=== PATIENT | female | born 1960 | race Caucasian/White ===

== ENCOUNTER 2016-12-10 09:06 | Outpatient (CLI) ==
[2015-03-19 12:04] VITALS: BMI 40.7
[2016-12-10 09:21] LABS: BASOPHILS % (AUTO) 0.5 % (0.0-3.0); EOSINOPHILS # (AUTO) 0.5 K/ul (0.0-0.7); EOSINOPHILS % (AUTO) 5.8 % (0.0-7.0); HEMATOCRIT 48.1 % (37.0-47.0); HEMOGLOBIN 15.6 g/dl (12.0-16.0); IMMATURE GRANULOCYTE % (AUTO) 0.2 % (0.0-5.0); LYMPHOCYTES # (AUTO) 2.3 K/uL (0.60-3.4); LYMPHOCYTES % (AUTO) 25.8 (10.0-50.0); MEAN CORPUSCULAR HEMOGLOBIN 29.9 pg (27.0-31.0); MEAN CORPUSCULAR HGB CONC 32.4 (31.8-35.4); MEAN CORPUSCULAR VOLUME 92.3 fl (81.0-99.0); MONOCYTES # (AUTO) 0.9 K/uL (0.4-2.0); MONOCYTES % (AUTO) 10.6 (0-10); NEUTROPHILS # (AUTO) 5.1 K/ul (2.0-6.9); NEUTROPHILS % (AUTO) 57.1; PLATELET COUNT 285 10^3/uL (140-440); RED BLOOD COUNT 5.21 10^6/ul (4.20-5.40); WHITE BLOOD COUNT 8.85 K/ul (4.6-10.2)
[2016-12-10 10:06] LABS: ALBUMIN 3.8 g/dL (3.4-5.0); ALBUMIN/GLOBULIN RATIO 1.12; ANION GAP 15.4; BILIRUBIN,TOTAL 0.51 mg/dL (0.00-1.20); BUN/CREATININE RATIO 19.58; CALCIUM 10.1 mg/dL (8.2-10.2); CREATININE 0.97 mg/dL (0.60-1.30); POTASSIUM 4.4 mmol/L (3.5-5.10); TOTAL PROTEIN 7.2 g/dL (6.4-8.2)
== END 2016-12-10 09:07 | disposition home or self-care (01) ==
LOC: LAB 09:06
PROVIDERS: ATTEND Emergency Medicine
DX: E11.9 Type 2 diabetes mellitus without complications (principal); I10 Essential (primary) hypertension; E78.5 Hyperlipidemia, unspecified; E66.9 Obesity, unspecified
CPT/HCPCS: 36415; 80053; 80061; 83036; 84443; 85025

== ENCOUNTER 2016-12-27 11:00 | Outpatient (RCR) ==
[2015-03-19 12:04] VITALS: BMI 40.7
--- NOTE | 2016-12-23 16:13 | RS.OPPTEV2 ---
Date of Note: 12/23/16 Visit #: 1 Date of Evaluation: 12/23/16 Payer Source: Medicaid Date of Onset/Injury/Change in Status: 11/28/16 Surgery Performed?: No Treatment Diagnosis: right heel/foot pain, plantar fasciitis History of Condition/Mechanism of Injury:: Patient reports right foot pain for approximately three weeks. States she has not had an injury to the foot. She wonders if it could be from limping on the left LE due to continued problems with the left knee. At this time she has had no injection and is not using any type of shoe insert. Prior Level of Function.....Patient was independent with: ADL's, Self Care, Caregiving, Ambulation/Mobility, Community Integration/Access Functional Limitations: ADL's (that require standing), Standing, Ambulation, Community Access/Integration Current Subjective/complaints:: Patient reports right foot pain. States most of her pain is at the bottom of the heel, but states she also has pain throughout the arch, plantar aspect of the foot and sometime the top of the foot. States she was given cream to put on the foot that is supposed to help with inflammation. States she tried ice on the right foot, but she could not tolerate the cold. States she just tries not to walk on it too much. She wears diabetic shoes. She does not have extra insert for the heel. States the doctor told her she did not need anthing extra in the shoe. She reports tingling in the feet from neuropathy. Reports her first steps in the morning are the most painful. After walking a little, her pain decreases, then turns into throbbing. States her feet swell. She has noticed the right foot with more swelling. She was instructed to perform the towel stretch, which she has been performing at home. States she still has pain with the left knee and limps at times. She feels that her limping on the left LE has caused the pain in the right foot. Patient states she cannot tolerate walking long distances, such as for shopping. Treatment Side (optional): Right Medical History Medical History: Hypertension, COPD, Diabetes Surgical History Comments:: Left TKA 01/16/15. Manipulation of left knee . Revision of left TKA on 11/04/15. Manipulation of the left knee 2015. Smoking Status: Former smoker Diagnostic Testing/Imaging:: Patient states she had an Xray that revealed a large bone spur on the heel of the right foot. Hx Home Medications: Tylenol, anti-inflammatory topical cream Patient's Goals: Her goal is to get relief of right foot pain and avoid surgery. Pain Assessment - Pain Description Pain Location: right foot: heel, plantar aspect, arch Pain Description: Throbbing Current Pain Intensity: 8/10 Worst Pain Intensity: 10/10 Functional Outcome Measure LE Functional Scale: 39 (39/80=51.25% impairment) - G Codes & Severity Modifier G Codes & Modifier: NA Source of G Code score: NA Observation - Observation Inspection: Right foot presents with no discoloration or bruising. Right foot at heel, plantar aspect and mid foot demonstrates no observable bruising compared to the left. Lateral malleoli appears to have puffiness at the inferior aspect. Girth Measurement Lower: Metheads: right 23 cm, left 23 cm. arch: right 22.5 cm, left 23 cm. malleoli: right 26 cm, left 26 cm Gait - Gait Pattern Gait Comments: Patient demonstrates decreased heelstrike on the right LE. Ambulates without an assistive device, independently. First few steps she demonstrates decreased stance on right LE, then appears to have an abbreviated stance on the left LE. - Left Knee ROM Comments: Left knee AROM -5 degrees extension to 90 degrees flexion. - Right Knee ROM Comments: Right knee AROM WFL's. - Left Knee Strength Left Knee Extension: 4+ Good + Left Knee Flexion: 4+ Good + - Right Knee Strength Right Knee Extension: 5 Normal Right Knee Flexion: 4+ Good + - Left Ankle ROM Left DF with Knee extension: neutral Comments: All else left ankle WFL's. - Right Ankle ROM Right DF with Knee extension: -5 degrees Comments: All else right ankle WFL's. - Left Ankle Strength Left Dorsiflexion: 5 Normal Left Plantar flexion: 5 Normal Left Eversion: 4+ Good + Left Inversion: 4+ Good + - Right Ankle Strength Right Dorsiflexion: 5 Normal Right Plantarflexion: 4+ Good + Right Eversion: 4 Good Right Inversion: 4+ Good + Palpation Comments:: Patient reports most tender at das aspect of the heel. States she is tender throughout the heel, plantar aspect of foot, arch, and dorsum of midfoot. Sensation - Sensation Comments: Reports tingling in the feet from neuropathy. She does not commit to where specifically the tingling is in the feet. Balance - Sitting Balance Static Sitting Balance: Good Dynamic Sitting Balance: Good - Standing Balance Static Standing Balance: Normal Dynamic Standing Balance: Normal - Treatment Modality: Ultrasound Parameters/Method Applied: 1.5 w/cm2 continuous X 9 mins to palmar aspect of right heel, throughout the plantar fascia and longitudinal arch. Patient Position: Sitting Interventions - Exercise/Activities/Manual Therapy Exercises/Activities: Patient instructed to continue towel stretch and also added heel stretch while standing on a step, and plantar fascia stretch. Advised patient to freeze a water bottle and try rolling her foot on it after prolonged standing and walking. Manual Therapy: NA HOME EXERCISE PROGRAM: Heelcord stretch: towel stretch and passive stretch on step, and plantar fascia stretch - Charges Total Direct Minutes: 55 mins Total Treatment Time: 55 mins Procedures billed for this date of service:: Evaluation medium complexity, US Assessment Assessment: Patient presents to therapy with a diagnosis of right plantar fasciitis and contracture of right Achilles tendon. She has tenderness at the right heel, arch ,and throughout the plantar aspect of the foot. She demonstrates decreased DF at the right ankle and weakness compared to the left ankle. Reports right foot pain is limiting her ability to tolerate prolonged standing and walking. She demonstrates good potential to benefit from modalities to reduce inflammation and stretching exercises to improve ankle DF and plantar fascia tissue mobility. Patient Education: Education of diagnosis, Body/Joint mechanics Rehab Potential: Good Short Term Goals Goal #1: Right ankle DF to neutral. Goal to be met by: 01/06/17 Goal #2: Tenderness at right heel decreased to minimal. Goal to be met by: 01/06/17 Goal #3: Patient independent and compliant with HEP. Goal to be met by: 01/06/17 Goal #4: Right ankle strength 5/5. Goal to be met by: 01/06/17 Director Health Goals Goal #1: Pt knows to continue HEP to maintain level of function at discharge. Goal to be met by: 02/06/17 Goal #2: Score on LE functional scale improved to <20% limitation. Goal to be met by: 02/06/17 Goal #3: Pt able to perform prolonged standing & walking with minimal R foot pain. Goal to be met by: 02/06/17 Goal #4: Patient to ambulate without gait deviation on right LE. Goal to be met by: 02/06/17 Plan - Treatment to be Provided Procedures: Therapeutic Exercises, Therapeutic Activity, Manual Therapy, Patient Education Modalities: Ultrasound/Phonophoresis, Cryotherapy, Hot Packs - Treatment Plan Frequency: 3 X week Duration: 6 weeks ORDER # VISITS AND/OR THROUGH DATE: 02/06/17 - Treatment Code (1) Plantar fasciitis Comments: right foot M72.2 (2) Foot pain Qualifiers: Laterality: right Qualified Description: Right foot pain Qualifier Code(s): (M79.671) Pain in right foot
--- NOTE | 2016-12-27 13:16 | RS.OPPTDN ---
Subjective Date of Note: 12/27/16 Visit #: 2 Date of Evaluation: 12/23/16 Payer Source: Medicaid Treatment Diagnosis: right heel/foot pain, plantar fasciitis Current Subjective/complaints:: Patient says she is hurting in multiple places today due to the weather (cold). She says she has tried great toe and plantar stretching with using her belt instead of a towel and it seemed to work well. Pain Assessment - Pain Description Pain Location: right foot: heel, plantar aspect, arch Pain Description: Throbbing Pain Description: muscle soreness Current Pain Intensity: 8/10 - Treatment Modality: Ultrasound Parameters/Method Applied: 1.5 w/cm2 continuous x 12 mins to the R heel and plantar surface/lateral border Patient Position: Supine - Heat/Cryotherapy Treatment: Hot Pack (15 mins wrapped around the plantar surface/arch in supine) Interventions - Exercise/Activities/Manual Therapy Exercises/Activities: Passive stretching of plantar fascia, heel cords, great toe x 5. Began manual isometrics all directions 2/5. Patient encouraged to continue with HEP of stretching and to try frozen water bottle using it inside a pillow case if too sensitive to the cold. Total minutes of Exercise: 15 Manual Therapy: NA HOME EXERCISE PROGRAM: Heelcord stretch: towel stretch and passive stretch on step, and plantar fascia stretch - Charges Total Direct Minutes: 27 Total Treatment Time: 42 Procedures billed for this date of service:: hp, u/s, ex Assessment: Patient admits various areas of pain today. She appears to be self stretching, but unable to attempt water bottle activity due to sensitivity to the cold. She was encouraged to try it in a pillow case to ease the temperature. Patient Education: Education of diagnosis, Body/Joint mechanics, Home Exercise Program, Home Safety, Activity Modification, Education of Plan of Care Patient demonstrates compliance with HEP?: Yes Short Term Goals Goal #1: Right ankle DF to neutral. Goal to be met by: 01/06/17 Goal #2: Tenderness at right heel decreased to minimal. Goal to be met by: 01/06/17 Goal #3: Patient independent and compliant with HEP. Goal to be met by: 01/06/17 Goal #4: Right ankle strength 5/5. Goal to be met by: 01/06/17 Kayaking Instructor Goals Goal #1: Pt knows to continue HEP to maintain level of function at discharge. Goal to be met by: 02/06/17 Goal #2: Score on LE functional scale improved to <20% limitation. Goal to be met by: 02/06/17 Goal #3: Pt able to perform prolonged standing & walking with minimal R foot pain. Goal to be met by: 02/06/17 Goal #4: Patient to ambulate without gait deviation on right LE. Goal to be met by: 02/06/17 Plan PLAN OF CARE EXPIRES ON:: 02/06/17 ORDER # VISITS AND/OR THROUGH DATE: 02/06/17 PLAN: Continue Plan of Care
== END 2016-12-28 ==
PROVIDERS: ATTEND Podiatrist
DX: M72.2 Plantar fascial fibromatosis (principal); M67.01 Short Achilles tendon (acquired), right ankle

== ENCOUNTER 2017-01-17 08:15 | Outpatient (RCR) ==
[2015-03-19 12:04] VITALS: BMI 40.7
--- NOTE | 2016-12-29 11:15 | RS.OPPTDN ---
Subjective Date of Note: 12/29/16 Visit #: 3 Date of Evaluation: 12/23/16 Payer Source: Medicaid Treatment Diagnosis: right heel/foot pain, plantar fasciitis Current Subjective/complaints:: Patient states treatment seems to be relieving her pain. She says she has been stretching at home and did get to try frozen water bottle, yet it was very uncomfortable. She says the worst time of the day is at night. She says her pain increases when laying in bed. Pain Assessment - Pain Description Pain Location: right foot: heel, plantar aspect, arch Pain Description: muscle soreness Current Pain Intensity: 8/10 - Treatment Modality: Ultrasound Parameters/Method Applied: 1.5 w/cm2 x 12 mins to the R plantar fascia, lateral border and heel. Patient Position: Supine - Heat/Cryotherapy Treatment: Hot Pack (plantar surface of R foot x 15) Interventions - Exercise/Activities/Manual Therapy Exercises/Activities: Passive stretching of plantar fascia, heel cords, great toe x 5. Continued with manual isometrics all directions 2/5. Reviewed HEP. Total minutes of Exercise: 10 Manual Therapy: NA HOME EXERCISE PROGRAM: Heelcord stretch: towel stretch and passive stretch on step, and plantar fascia stretch - Charges Total Direct Minutes: 22 Total Treatment Time: 37 Procedures billed for this date of service:: hp, u/s, ex Assessment: Patient experiencing mild relief presently to the R foot. Her C/c is mostly at bedtime. She has been also using pain relief cream (prescription) and taking Ibuprofen. Patient Education: Education of diagnosis, Body/Joint mechanics, Home Exercise Program, Home Safety, Activity Modification, Education of Plan of Care Patient demonstrates compliance with HEP?: Yes Short Term Goals Goal #1: Right ankle DF to neutral. Goal to be met by: 01/06/17 Goal #2: Tenderness at right heel decreased to minimal. Goal to be met by: 01/06/17 Goal #3: Patient independent and compliant with HEP. Goal to be met by: 01/06/17 Goal #4: Right ankle strength 5/5. Goal to be met by: 01/06/17 Ice Cream Machine Operator Goals Goal #1: Pt knows to continue HEP to maintain level of function at discharge. Goal to be met by: 02/06/17 Goal #2: Score on LE functional scale improved to <20% limitation. Goal to be met by: 02/06/17 Goal #3: Pt able to perform prolonged standing & walking with minimal R foot pain. Goal to be met by: 02/06/17 Goal #4: Patient to ambulate without gait deviation on right LE. Goal to be met by: 02/06/17 Plan PLAN OF CARE EXPIRES ON:: 02/06/17 ORDER # VISITS AND/OR THROUGH DATE: 02/06/17 PLAN: Continue Plan of Care
--- NOTE | 2017-01-05 10:30 | RS.OPPTDN ---
Subjective Date of Note: 01/05/17 Visit #: 4 Date of Evaluation: 12/23/16 Payer Source: Medicaid Treatment Diagnosis: right heel/foot pain, plantar fasciitis Current Subjective/complaints:: Patient says her foot was bothering her yesterday and attributed it to the weather. She says she went to ball games over the weekend and it caused her elevated pain to the L leg and knee. Pain Assessment - Pain Description Pain Location: right foot: heel, plantar aspect, arch Pain Description: muscle soreness Current Pain Intensity: 07/07 - Treatment Modality: Ultrasound Parameters/Method Applied: 1.5 w/cm2 continuous x 12 mins to the R heel and plantar fascia Patient Position: Supine - Heat/Cryotherapy Treatment: Hot Pack (surrounding the R heel and plantar fascia x 15 mins supine) Interventions - Exercise/Activities/Manual Therapy Exercises/Activities: Passive stretching of plantar fascia, heel cords, great toe x 5. Continued with manual isometrics all directions /10. Finished with more stretching. Reviewed HEP. Total minutes of Exercise: 17 Manual Therapy: NA HOME EXERCISE PROGRAM: Heelcord stretch: towel stretch and passive stretch on step, and plantar fascia stretch - Charges Total Direct Minutes: 29 Total Treatment Time: 43 Procedures billed for this date of service:: hp, u/s, ex Assessment: Patient experiencing relief of R foot pain, but does seem to react to weather changes. Patient seems to understand she needs to perform stretches often at home. Patient Education: Education of diagnosis, Body/Joint mechanics, Home Exercise Program, Home Safety, Activity Modification, Education of Plan of Care Comments: Needs encouragement and consistency Short Term Goals Goal #1: Right ankle DF to neutral. Goal to be met by: 01/06/17 Progress towards Goal:: Progressing Goal #2: Tenderness at right heel decreased to minimal. Goal to be met by: 01/06/17 Progress towards Goal:: Progressing Goal #3: Patient independent and compliant with HEP. Goal to be met by: 01/06/17 Goal #4: Right ankle strength 5/5. Goal to be met by: 01/06/17 Computer Customer Support Specialist Goals Goal #1: Pt knows to continue HEP to maintain level of function at discharge. Goal to be met by: 02/06/17 Goal #2: Score on LE functional scale improved to <20% limitation. Goal to be met by: 02/06/17 Goal #3: Pt able to perform prolonged standing & walking with minimal R foot pain. Goal to be met by: 02/06/17 Goal #4: Patient to ambulate without gait deviation on right LE. Goal to be met by: 02/06/17 Plan PLAN OF CARE EXPIRES ON:: 02/06/17 ORDER # VISITS AND/OR THROUGH DATE: 02/06/17 PLAN: Continue Plan of Care
--- NOTE | 2017-01-10 09:42 | RS.OPPTDN ---
Subjective Date of Note: 01/10/17 Visit #: 6 Date of Evaluation: 12/23/16 Payer Source: Medicaid Treatment Diagnosis: right heel/foot pain, plantar fasciitis Current Subjective/complaints:: Patient states her foot hurt all last night. She says she placed "salve" on it and it helped a lot. She says she is unsure why she had such elevated pain to the foot. She is open to try any treatment, but says she is definitely not having surgery. Pain Assessment - Pain Description Pain Location: right foot: heel, plantar aspect, arch Pain Description: muscle soreness Current Pain Intensity: elevated today, but significantly better after session. - Treatment Modality: Ultrasound Parameters/Method Applied: Began phonophoresis using hydrocortisone. Patient denies any allergies. Continuous @ 1.5 w/cm2 x 12 mins to plantar fascia and heel of R foot. Patient Position: Supine - Heat/Cryotherapy Treatment: Hot Pack (surrounding the heel and plantar fascia R foot x 15 mins supine) Interventions - Exercise/Activities/Manual Therapy Exercises/Activities: [id number]. Passive stretching of plantar fascia, gastroc, soleus, and great toe, multiple reps. Manual resistiance for isometrics all directions, multiple reps. Red tband for all directions 2x10. Ended with additional stretching. Reviewed HEP. Manual Therapy: NA HOME EXERCISE PROGRAM: Heelcord stretch: towel stretch and passive stretch on step, and plantar fascia stretch. Isometric ankle df, inv, and eversion. - Charges Total Direct Minutes: 29 Total Treatment Time: 43 Procedures billed for this date of service:: hp, u/s, ex Assessment: Patient expresses she has had elevated pain to the R heel and arch over the past day. She is unsure of the reason, but was relieved once applying OTC ointment. She shows improved flexibility today to the foot/great toe with stretching and should benefit from further phonophoresis to assist with pain. Patient Education: Education of diagnosis, Body/Joint mechanics, Home Exercise Program, Home Safety, Activity Modification, Education of Plan of Care Short Term Goals Goal #1: Right ankle DF to neutral. Goal to be met by: 01/06/17 Progress towards Goal:: Progressing Goal #2: Tenderness at right heel decreased to minimal. Goal to be met by: 01/06/17 Progress towards Goal:: Progressing Goal #3: Patient independent and compliant with HEP. Goal to be met by: 01/06/17 Progress towards Goal:: Progressing Goal #4: Right ankle strength 5/5. Goal to be met by: 01/06/17 Progress towards Goal:: Progressing Public Employment Mediator Goals Goal #1: Pt knows to continue HEP to maintain level of function at discharge. Goal to be met by: 02/06/17 Goal #2: Score on LE functional scale improved to <20% limitation. Goal to be met by: 02/06/17 Goal #3: Pt able to perform prolonged standing & walking with minimal R foot pain. Goal to be met by: 02/06/17 Progress towards goal: Progressing Goal #4: Patient to ambulate without gait deviation on right LE. Goal to be met by: 02/06/17 Plan PLAN OF CARE EXPIRES ON:: 02/06/17 ORDER # VISITS AND/OR THROUGH DATE: 02/06/17 PLAN: Continue Plan of Care
--- NOTE | 2017-01-10 11:16 | RS.OPPTDN ---
Subjective Date of Note: 01/07/17 Visit #: 5 Date of Evaluation: 12/23/16 Payer Source: Medicaid Treatment Diagnosis: right heel/foot pain, plantar fasciitis Current Subjective/complaints:: Mario Alberto reports treatment is helping. Reports no pain with weight-bearing following modalities and execise today. Pain Assessment - Pain Description Pain Location: right foot: heel, plantar aspect, arch Pain Description: muscle soreness Current Pain Intensity: mod prior to and no pain after treatment - Treatment Modality: Ultrasound Parameters/Method Applied: [id number] at 1.5w/cm2 to the right foot plantar surface and the lateral third of the dorsal surface around the 3rd and 4th proximal metatarsal and tarsal bone joints. Patient Position: Supine - Heat/Cryotherapy Treatment: Hot Pack ([id number] to the right foot prior to US and EX. Patient in supine. ) Interventions - Exercise/Activities/Manual Therapy Exercises/Activities: [id number]. Passive stretching of plantar fascia, gastroc, soleus, and great toe, multiple reps. Manual resistiance for isometrics all directions, multiple reps. Ended with addiitonal stretching. Reviewed HEP. Total minutes of Exercise: 15mins Manual Therapy: NA HOME EXERCISE PROGRAM: Heelcord stretch: towel stretch and passive stretch on step, and plantar fascia stretch. Isometric ankle df, inv, and eversion. - Charges Total Direct Minutes: 25mins Total Treatment Time: 45mins Procedures billed for this date of service:: HP, US, EX Assessment: Patient responded well to treatment today with reports of no pain with wieght-bearing. She appears to be working on HEP and motivated to progress. Patient Education: Education of diagnosis, Body/Joint mechanics, Home Exercise Program Patient demonstrates compliance with HEP?: Yes Short Term Goals Goal #1: Right ankle DF to neutral. Goal to be met by: 01/06/17 Progress towards Goal:: Progressing Goal #2: Tenderness at right heel decreased to minimal. Goal to be met by: 01/06/17 Progress towards Goal:: Progressing Goal #3: Patient independent and compliant with HEP. Goal to be met by: 01/06/17 Progress towards Goal:: Progressing Goal #4: Right ankle strength 5/5. Goal to be met by: 01/06/17 Progress towards Goal:: Progressing Dam Tender Assistant Goals Goal #1: Pt knows to continue HEP to maintain level of function at discharge. Goal to be met by: 02/06/17 Goal #2: Score on LE functional scale improved to <20% limitation. Goal to be met by: 02/06/17 Goal #3: Pt able to perform prolonged standing & walking with minimal R foot pain. Goal to be met by: 02/06/17 Progress towards goal: Progressing Goal #4: Patient to ambulate without gait deviation on right LE. Goal to be met by: 02/06/17 Plan PLAN OF CARE EXPIRES ON:: 02/06/17 ORDER # VISITS AND/OR THROUGH DATE: 02/06/17 PLAN: Continue Plan of Care (Continue and progress exercise to reduce pain and increase functional activity level.)
--- NOTE | 2017-01-12 12:01 | RS.OPPTDN ---
Subjective Date of Note: 01/12/17 Visit #: 7 Date of Evaluation: 12/23/16 Payer Source: Medicaid Treatment Diagnosis: right heel/foot pain, plantar fasciitis Current Subjective/complaints:: Patient reports elevated pain. She says she is unsure if it weather related or not. Pain Assessment - Pain Description Pain Location: right foot: heel, plantar aspect, arch Pain Description: muscle soreness Current Pain Intensity: mod prior to and no pain after treatment - Treatment Modality: Ultrasound Parameters/Method Applied: Phonophoresis @ 1.5 w/cm2 x 12 mins Treatment Area: R plantar fascia and heel Patient Position: Supine - Heat/Cryotherapy Treatment: Hot Pack Interventions - Exercise/Activities/Manual Therapy Exercises/Activities: [id number]. Passive stretching of plantar fascia, gastroc, soleus, and great toe, multiple reps. Manual resistiance for isometrics all directions, multiple reps. Red tband for all ankle motions 2/10, Hamstring stretching and further stretching of heel cords. Reviewed HEP. Manual Therapy: NA HOME EXERCISE PROGRAM: Heelcord stretch: towel stretch and passive stretch on step, and plantar fascia stretch. Isometric ankle df, inv, and eversion. - Charges Total Direct Minutes: 29 Total Treatment Time: 44 Procedures billed for this date of service:: hp, u.s, ex Assessment: Patient experiencing increased pain today possibly related to the weather, but should improve with further phonophoresis. Patient Education: Education of diagnosis, Body/Joint mechanics, Home Exercise Program, Home Safety, Activity Modification, Education of Plan of Care Patient demonstrates compliance with HEP?: Yes Short Term Goals Goal #1: Right ankle DF to neutral. Goal to be met by: 01/06/17 Progress towards Goal:: Progressing Goal #2: Tenderness at right heel decreased to minimal. Goal to be met by: 01/06/17 Progress towards Goal:: Progressing Goal #3: Patient independent and compliant with HEP. Goal to be met by: 01/06/17 Progress towards Goal:: Progressing Goal #4: Right ankle strength 5/5. Goal to be met by: 01/06/17 Progress towards Goal:: Progressing [facility] Goals Goal #1: Pt knows to continue HEP to maintain level of function at discharge. Goal to be met by: 02/06/17 Goal #2: Score on LE functional scale improved to <20% limitation. Goal to be met by: 02/06/17 Goal #3: Pt able to perform prolonged standing & walking with minimal R foot pain. Goal to be met by: 02/06/17 Progress towards goal: Progressing Goal #4: Patient to ambulate without gait deviation on right LE. Goal to be met by: 02/06/17 Plan PLAN OF CARE EXPIRES ON:: 02/06/17 ORDER # VISITS AND/OR THROUGH DATE: 02/06/17 PLAN: Progress Exercises
--- NOTE | 2017-01-17 09:32 | RS.OPPTDN ---
Subjective Date of Note: 01/17/17 Visit #: 8 Date of Evaluation: 12/23/16 Payer Source: Medicaid Treatment Diagnosis: right heel/foot pain, plantar fasciitis Current Subjective/complaints:: Patient says her foot has been feeling a lot better lately. She says she returns to the MD this afternoon. C/c is sinus congestion. Pain Assessment - Pain Description Pain Location: right foot: heel, plantar aspect, arch Pain Description: muscle soreness Current Pain Intensity: mod prior to and no pain after treatment - Treatment Modality: Ultrasound Parameters/Method Applied: Phonophoresis using hydrocortisone @ 1.5 w/cm2 continuous x 12 mins to the R plantar fascia/lateral arch and heel. Patient Position: Supine - Heat/Cryotherapy Treatment: Hot Pack (15 mins to the R foot) Interventions - Exercise/Activities/Manual Therapy Exercises/Activities: [id number]. Passive stretching of plantar fascia, gastroc, soleus, and great toe, multiple reps. Manual resistiance for isometrics all directions, multiple reps. Red tband for all ankle motions 2/10, Hamstring stretching and further stretching of heel cords. Reviewed HEP. Completed reassessment of LE Functional Scale. Manual Therapy: NA HOME EXERCISE PROGRAM: Heelcord stretch: towel stretch and passive stretch on step, and plantar fascia stretch. Isometric ankle df, inv, and eversion. - Objective Findings Observations,measurements,etc.: 71/80 or 11% impairment compared to 39/80 or 51 % impairment at [facility]. - Charges Total Direct Minutes: 29 Total Treatment Time: 44 Procedures billed for this date of service:: hp, u/s, ex Assessment: Patient has been experiencing less R foot pain with adding hydrocortisone to u/s. She presents with increased flexibility regarding DF and improved general strength to the R foot. Patient Education: Education of diagnosis, Body/Joint mechanics, Home Exercise Program, Home Safety, Activity Modification, Education of Plan of Care Patient demonstrates compliance with HEP?: Yes Short Term Goals Goal #1: Right ankle DF to neutral. Goal to be met by: 01/06/17 Progress towards Goal:: Met Goal #2: Tenderness at right heel decreased to minimal. Goal to be met by: 01/06/17 Progress towards Goal:: Met Goal #3: Patient independent and compliant with HEP. Goal to be met by: 01/06/17 Progress towards Goal:: Met Goal #4: Right ankle strength 5/5. Goal to be met by: 01/06/17 Progress towards Goal:: Met Sn[employer]isher Goals Goal #1: Pt knows to continue HEP to maintain level of function at discharge. Goal to be met by: 02/06/17 Progress towards goal: Met Goal #2: Score on LE functional scale improved to <20% limitation. Goal to be met by: 02/06/17 Progress towards goal: Met Comments: 11% Goal #3: Pt able to perform prolonged standing & walking with minimal R foot pain. Goal to be met by: 02/06/17 Progress towards goal: Partially Met Comments: Allowing her to attend basketball games with little to no diff from foot Goal #4: Patient to ambulate without gait deviation on right LE. Goal to be met by: 02/06/17 Progress towards goal: Progressing Plan PLAN OF CARE EXPIRES ON:: 02/06/17 ORDER # VISITS AND/OR THROUGH DATE: 02/06/17 PLAN: Plan for Discharge
--- NOTE | 2017-03-30 16:04 | RS.QUICKDC ---
Discharge from PT Date of Discharge: 01/17/17 Number of Visits: 8 Reason for Discharge: Patient completed approved visits and POC. She received treatment of moist heat, u/s with hydrocortisone, and passive stretching/HEP. She admitted improvement with pain at LDOS. Impairment score revealed improvement to now 11%. For specific treatment, see daily notes.
== END 2017-01-25 ==
PROVIDERS: ATTEND Podiatrist
DX: M72.2 Plantar fascial fibromatosis (principal); M67.01 Short Achilles tendon (acquired), right ankle

== ENCOUNTER 2017-05-05 11:46 | Outpatient (CLI) ==
[2015-03-19 12:04] VITALS: BMI 40.7
[2017-05-05 12:02] LABS: BASOPHILS % (AUTO) 0.5 % (0.0-3.0); EOSINOPHILS # (AUTO) 0.5 K/ul (0.0-0.7); EOSINOPHILS % (AUTO) 6.4 % (0.0-7.0); HEMATOCRIT 43.2 % (37.0-47.0); HEMOGLOBIN 14.6 g/dl (12.0-16.0); IMMATURE GRANULOCYTE % (AUTO) 0.2 % (0.0-5.0); LYMPHOCYTES % (AUTO) 24.7 (10.0-50.0); MEAN CORPUSCULAR HGB CONC 33.8 (31.8-35.4); MEAN CORPUSCULAR VOLUME 88.7 fl (81.0-99.0); MONOCYTES # (AUTO) 0.7 K/uL (0.4-2.0); MONOCYTES % (AUTO) 8.6 (0-10); NEUTROPHILS # (AUTO) 4.8 K/ul (2.0-6.9); NEUTROPHILS % (AUTO) 59.6; PLATELET COUNT 279 10^3/uL (140-440); RED BLOOD COUNT 4.87 10^6/ul (4.20-5.40); WHITE BLOOD COUNT 8.11 K/ul (4.6-10.2)
[2017-05-05 12:46] LABS: ALBUMIN 3.7 g/dL (3.4-5.0); ALBUMIN/GLOBULIN RATIO 1.06; ANION GAP 13.2; BILIRUBIN,TOTAL 0.43 mg/dL (0.00-1.20); BUN/CREATININE RATIO 13.54; CALCIUM 9.9 mg/dL (8.2-10.2); CHOL/HDL RATIO 3.8 (4.5-5.5); CREATININE 0.96 mg/dL (0.60-1.30); POTASSIUM 4.2 mmol/L (3.5-5.10); TOTAL PROTEIN 7.2 g/dL (6.4-8.2)
== END 2017-05-05 11:47 | disposition home or self-care (01) ==
LOC: LAB 11:46
PROVIDERS: ATTEND Internal Medicine
DX: E11.9 Type 2 diabetes mellitus without complications (principal); I10 Essential (primary) hypertension; I25.10 Atherosclerotic heart disease of native coronary artery without angina pectoris; E66.9 Obesity, unspecified; E78.5 Hyperlipidemia, unspecified
CPT/HCPCS: 36415; 80053; 80061; 83036; 84443; 85025

== ENCOUNTER 2017-09-06 10:59 | Outpatient (CLI) ==
[2015-03-19 12:04] VITALS: BMI 40.7
[2017-09-06 11:28] LABS: BASOPHILS % (AUTO) 0.4 % (0.0-3.0); EOSINOPHILS # (AUTO) 0.5 K/ul (0.0-0.7); EOSINOPHILS % (AUTO) 5.5 % (0.0-7.0); HEMATOCRIT 41.8 % (37.0-47.0); HEMOGLOBIN 14.2 g/dl (12.0-16.0); IMMATURE GRANULOCYTE % (AUTO) 0.2 % (0.0-5.0); LYMPHOCYTES # (AUTO) 2.2 K/uL (0.60-3.4); LYMPHOCYTES % (AUTO) 26.3 (10.0-50.0); MEAN CORPUSCULAR HEMOGLOBIN 30.2 pg (27.0-31.0); MEAN CORPUSCULAR VOLUME 88.9 fl (81.0-99.0); MONOCYTES # (AUTO) 0.7 K/uL (0.4-2.0); MONOCYTES % (AUTO) 8.9 (0-10); NEUTROPHILS # (AUTO) 4.9 K/ul (2.0-6.9); NEUTROPHILS % (AUTO) 58.7; PLATELET COUNT 275 10^3/uL (140-440); WHITE BLOOD COUNT 8.32 K/ul (4.6-10.2)
[2017-09-06 12:07] LABS: ALBUMIN 3.4 g/dL (3.4-5.0); ALBUMIN/GLOBULIN RATIO 0.97; ANION GAP 13.9; BILIRUBIN,TOTAL 0.33 mg/dL (0.00-1.20); BUN/CREATININE RATIO 22.22; CALCIUM 9.9 mg/dL (8.2-10.2); CHOL/HDL RATIO 4.3 (4.5-5.5); CREATININE 0.81 mg/dL (0.60-1.30); POTASSIUM 3.9 mmol/L (3.5-5.10); TOTAL PROTEIN 6.9 g/dL (6.4-8.2)
== END 2017-09-06 11:00 | disposition home or self-care (01) ==
LOC: LAB 10:59
PROVIDERS: ATTEND Internal Medicine
DX: E11.9 Type 2 diabetes mellitus without complications (principal); E78.5 Hyperlipidemia, unspecified; E66.9 Obesity, unspecified
CPT/HCPCS: 36415; 80053; 80061; 82607; 83036; 84443; 85025

== ENCOUNTER 2017-09-08 06:41 | Outpatient (CLI) ==
[2015-03-19 12:04] VITALS: BMI 40.7
--- NOTE | 2017-09-08 11:01 | ECHO2D ---
Date of Exam: 09/08/17 Ordering Physician: YUE ELLINGTON Room #: OP Reason for Echo: CHEST PAIN, OBESITY, HYPERTENSION, DM2 M-Mode Normal Adult Results LV Dimensions Normal Adult Results AoV Opening excursions >1.6 >1.6 LVEDD-base- 3.5-5.8 5.7 Ao root dimensions 2.0-3.7 2.8 LVESD-base- 3.1-4.6 L. Atrium dimensions 1.9-3.8 3.9 Post. Wall thickness 0.8-1.1 1.2 IV septum (thickness) 0.7-1.2 1.2 Post. Wall excursion 0.72-1.3 NORMAL Septal motion NORMAL Systolic motion R. Ventricular cavity 1.5-2.0 NORMAL LVEF 60% 52% Paradoxical septal wall motion NORMAL 2-D : 2-D M Mode Echocardiogram was performed using apical four chamber and left parasternal long and short axis views. Mitral, tricuspid and aortic valves appear to be normal. Contractility of the left ventricle seems to be normal, so is the cavity size. Left atrial cavity size and aortic root appear to be normal. There is no pericardial effusion. There is no thrombus noted in the left ventricular or left aortic cavity. No mitral valve prolapse noted. M-MODE: MV: NORMAL AV: NORMAL TV: NORMAL PV: CHAMBER SIZE: NORMAL WALL MOTION: NORMAL PERICARDIUM: NORMAL INTERPRETATION: 1. BORDERLINE LEFT VENTRICULAR HYPERTROPHY 2. BORDERLINE LEFT VENTRICLE CAVITY ENLARGEMENT 3. LEFT VENTRICLE EJECTION FRACTION 52% 4. NORMAL LEFT VENTRICULAR CONTRACTILITY MTDD
== END 2017-09-08 06:42 | disposition home or self-care (01) ==
LOC: CAR 06:41
PROVIDERS: ATTEND Internal Medicine
DX: R07.9 Chest pain, unspecified (principal)
CPT/HCPCS: 93005; 93010

== ENCOUNTER 2017-09-09 09:32 | Outpatient (CLI) ==
[2015-03-19 12:04] VITALS: BMI 40.7
--- NOTE | 2017-09-09 12:15 | MAMMO ---
EXAM: Digital screening mammogram with tomosynthesis HISTORY: Screening COMPARISON: 10/17/2015 FINDINGS: Digital MLO and CC views of the right and left breast were performed. Tomosynthesis was performed. Computer aided detection was utilized. There are scattered fibroglandular densities. Sc attered benign bilateral calcifications. There is no evidence for mass, asymmetry, distortion, or louis spicious calcifications in either breast. IMPRESSION: 1. No evidence of malignancy in the right or left breast. 2. Annual screening mammogram is recommended in one year. BIRADS category 2, benign
== END 2017-09-09 09:33 | disposition home or self-care (01) ==
LOC: RAD 09:32
PROVIDERS: ATTEND Internal Medicine
DX: Z12.31 Encounter for screening mammogram for malignant neoplasm of breast (principal)
CPT/HCPCS: 77067

== ENCOUNTER 2018-01-16 10:22 | Outpatient (CLI) ==
[2015-03-19 12:04] VITALS: BMI 40.7
== END 2018-01-16 10:23 | disposition home or self-care (01) ==
LOC: LAB 10:22
PROVIDERS: ATTEND Internal Medicine
DX: E11.9 Type 2 diabetes mellitus without complications (principal); E78.5 Hyperlipidemia, unspecified; I10 Essential (primary) hypertension; E66.9 Obesity, unspecified; J44.9 Chronic obstructive pulmonary disease, unspecified
CPT/HCPCS: 36415; 80053; 80061; 83036; 84443; 85025

== ENCOUNTER 2018-05-19 09:23 | Outpatient (CLI) ==
[2015-03-19 12:04] VITALS: BMI 40.7
== END 2018-05-19 09:24 | disposition home or self-care (01) ==
LOC: LAB 09:23
PROVIDERS: ATTEND Internal Medicine
DX: E78.5 Hyperlipidemia, unspecified (principal); E11.9 Type 2 diabetes mellitus without complications; I10 Essential (primary) hypertension
CPT/HCPCS: 36415; 80053; 80061; 83036; 84443; 85025

== ENCOUNTER 2018-07-21 09:59 | Outpatient (CLI) ==
[2015-03-19 12:04] VITALS: BMI 40.7
== END 2018-07-21 10:00 | disposition home or self-care (01) ==
LOC: LAB 09:59
PROVIDERS: ATTEND Internal Medicine
DX: E78.5 Hyperlipidemia, unspecified (principal); E11.9 Type 2 diabetes mellitus without complications; E66.9 Obesity, unspecified
CPT/HCPCS: 36415; 80053; 80061; 83036

== ENCOUNTER 2018-09-20 09:27 | Emergency (ER) ==
[2018-09-20 09:41] VITALS: BP 144/88; TEMP 95.7; BMI 38.2
--- NOTE | 2018-09-20 10:20 | DI ---
EXAM: Supine abdominal radiograph. HISTORY: Possible insulin needle in the abdominal wall. COMPARISON: None available. FINDINGS: Cholecystectomy clips are present. Metallic clasps of patient's bra noted. No other radi opaque foreign objects are seen. Atherosclerotic calcifications are present. Costal cartilage calci fications seen within the ribs. Bowel gas pattern is nonobstructive. No acute osseous abnormality i dentified. IMPRESSION: No metallic foreign object identified. Follow-up as warranted.
--- NOTE | 2018-09-20 10:58 | ED.PDOC ---
General ED Provider: Dr. GALLITO DO Chief Complaint: Non-specific Complaint Stated Complaint: insulin needle may have been broken into the abdominal wall Time Seen by Physician: 09:30 (seen with nurse at all times ) Mode of Arrival: Walk-In Information Source: Patient Exam Limitations: No limitations Primary Care Provider: YUE ELLINGTON Nursing and Triage Documentation Reviewed and Agree: Yes Does patient meet sepsis criteria?: No System Inflammatory Response Syndrome: Not Applicable Sepsis Protocol: For patient's 13 years and over: Temp is 96.8 and below OR 101 and greater Pulse >90 BPM Resp >20/minute Acutely Altered Mental Status Are patient's symptoms suggestive of a new infection, such as: -Pneumonia -Skin, Soft Tissue -Endocarditis -UTI -Bone, Joint Infection -Implantable Device -Acute Abdominal Infection -Wound Infection -Meningitis -Blood Stream Catheter Infection -Unknown Trauma/Injury Complaint Exam - Trauma Complaint/Exam Location of Pain or Injury: Reports: Abdomen Onset/Duration: today Current Severity: None Aggravating: Reports: None Associated Signs and Symptoms: Denies: LOC, Confusion, Memory loss, Lethargy, Vomiting, Bleeding, Bruising, Swelling, Extremity disuse, Painful respiration, Hoarseness, Dysphagia, Hemoptysis, Significant blood loss Related Surgical History: Reports: None Nexus Low Risk Criteria: No post-midline CS tender, No evidence of intoxicat., No Altered LOC, No focal neuro deficit, No distracting injuries Review of Systems - Review Of Systems Constitutional: Reports: No symptoms Eyes: Reports: No symptoms Ears, Nose, Mouth, Throat: Reports: No symptoms Respiratory: Reports: No symptoms Cardiac: Reports: No symptoms GI: Reports: No symptoms : Reports: No symptoms Musculoskeletal: Reports: No symptoms Skin: Reports: No symptoms Neurological: Reports: No symptoms Endocrine: Reports: No symptoms Hematologic/Lymphatic: Reports: No symptoms All Other Systems: Reviewed and Negative Past Medical History - Past Medical History Previously Healthy: Yes Endocrine: Reports: DM 2 Cardiovascular: Reports: None Respiratory: Reports: None Hematological: Reports: None Gastrointestinal: Reports: None Genitourinary: Reports: None Neuro/Psych: Reports: None Musculoskeletal: Reports: None Cancer: Reports: None Last Menstrual Period: hysterectomy - Surgical History General Surgical History: Reports: None - Family History Family History: Reports: None - Social History Smoking Status: Former smoker Hx Substance Use: No Alcohol Screening: None Physical Exam - Physical Exam Appearance: Well-appearing, No pain distress, Well-nourished Eyes: MARSHAL, EOMI, Conjunctiva clear ENT: Ears normal, Nose normal, Oropharynx normal Respiratory: Airway patent, Breath sounds clear, Breath sounds equal, Respirations nonlabored Cardiovascular: RRR, Pulses normal, No rub, No murmur GI/: Soft, Nontender, No masses, Bowel sounds normal, No Organomegaly Musculoskeletal: Normal strength, ROM intact, No edema, No calf tenderness Skin: Warm, Dry, Normal color Neurological: Sensation intact, Motor intact, Reflexes intact, Cranial nerves intact, Alert, Oriented Psychiatric: Affect appropriate, Mood appropriate Interpretation - Radiology Interpretation Radiology Interpretation By: Radiologist Radiology Results: No acute changes Critical Care Note - Critical Care Note Total Time (mins): 0 Course - Course Orders, Labs, Meds: Orders Category Date Time Status FLAT PLATE ABD [ABDOMEN 1 VIEW] Stat RADS 09/20/18 09:45 Completed Vital Signs: Temp Pulse Resp BP Pulse Ox 09/20/18 09:28 95.7 F L 73 20 144/88 H 97 Departure - Departure Time of Disposition: 10:57 Disposition: HOME SELF-CARE Discharge Problem: Normal exam Instructions: Normal Exam (ED) Condition: Good Pt referred to PMD for follow-up: Yes IPMP verified?: No Additional Instructions: Please call your Family Physician as soon as possible to schedule a follow-up appointment. Allergies/Adverse Reactions: Allergies No Known Allergies Allergy (Verified 09/20/18 09:36) Home Medications: Ambulatory Orders Albuterol Sulfate [Proair Hfa] 2 puff INH Q4HR PRN 04/05/14 Aspirin [Aspirin EC] 81 mg PO DAILY 04/05/14 Atorvastatin Calcium [Lipitor] 40 mg PO DAILY 04/05/14 Benazepril HCl [Lotensin] 20 mg PO DAILY 04/05/14 Calcium Carbonate/Vitamin D3 [Calcium 600 + Vit D Tablet] 1 tab PO DAILY Clopidogrel Bisulfate [Plavix] 75 mg PO DAILY 04/05/14 Estrogens,Conj.,Synthetic A [Cenestin] 1.25 mg PO DAILY 04/05/14 Furosemide [Lasix] 20 mg PO DAILY 04/05/14 Gabapentin [Neurontin] 300 mg PO TID 04/05/14 Insulin Glargine,Hum.rec.anlog [Lantus] 60 units SQ DAILY 04/05/14 Insulin Regular, Human [Humulin R] 18 ml SQ TID 04/05/14 Levothyroxine Sodium [Synthroid] 50 mcg PO DAILY 04/05/14 Lorazepam [Ativan] 0.5 mg PO BEDTIME 04/05/14 Metformin HCl 850 mg PO BID 04/05/14 Metoprolol Tartrate [Lopressor] 50 mg PO DAILY 04/05/14 Nitroglycerin [Nitrostat] 0.4 mg SL DIRECTED PRN 04/05/14 Henry-3 Fatty Acids/Fish Oil [Fish Oil 1,000 mg Capsule] 1 cap PO DAILY Potassium Chloride [K-Dur] 20 meq PO DIRECTED PRN 04/05/14 Triamterene/Hydrochlorothiazid [Dyazide] 1 cap PO DAILY 04/05/14 Amlodipine Besylate [Norvasc] 5 mg PO DAILY 03/19/15 Apixaban [Eliquis] 5 mg PO BID #60 tablet 03/19/15 Hydrocodone Bit/Acetaminophen [Edison 10-325] 1 each PO Q6HR PRN 03/19/15 Disposition Discussed With: Patient
== END 2018-09-20 11:06 | disposition home or self-care (01) ==
LOC: ED 09:27
DX: S30.92XA Unspecified superficial injury of abdominal wall, initial encounter (principal); Z71.1 Person with feared health complaint in whom no diagnosis is made; E11.9 Type 2 diabetes mellitus without complications; Z79.4 Long term (current) use of insulin; Z79.899 Other long term (current) drug therapy
CPT/HCPCS: 99282

== ENCOUNTER 2018-09-22 12:12 | Outpatient (CLI) ==
--- NOTE | 2018-09-25 08:20 | MAMMO ---
EXAM: Bilateral digital screening mammogram (2-D and 3-D) History: Screening Comparison: Bilateral mammogram 09/09/2017 Findings: MLO and CC views of bilateral breasts demonstrate scattered fibroglandular breast parenchy ma. CAD was reviewed by the radiologist. Tomosynthesis was performed. There are no dominant masses , no suspicious microcalcifications and no architectural distortions. Stable benign bilateral calcif ications. Impression: Benign stable mammogram. Recommend followup routine screening mammography in 1 year. BIRADS 2
== END 2018-09-22 12:13 | disposition home or self-care (01) ==
LOC: RAD 12:12
PROVIDERS: ATTEND Internal Medicine
DX: Z12.31 Encounter for screening mammogram for malignant neoplasm of breast (principal)
CPT/HCPCS: 77067

== ENCOUNTER 2019-02-08 09:14 | Outpatient (CLI) | END 2019-02-08 09:15 | disposition home or self-care (01) | LOC: LAB 09:14 | PROVIDERS: ATTEND Internal Medicine | DX: E11.9 Type 2 diabetes mellitus without complications (principal); E78.5 Hyperlipidemia, unspecified; I10 Essential (primary) hypertension; E66.9 Obesity, unspecified | CPT/HCPCS: 36415; 80053; 80061; 83036; 84439; 84443; 85025 ==

== ENCOUNTER 2019-08-07 12:25 | Outpatient (CLI) ==
--- NOTE | 2019-08-07 16:27 | US ---
EXAM: ULTRASOUND LOWER EXTREMITY VENOUS DOPPLER EXAM HISTORY: Leg pain. FINDINGS: Bilateral lower extremity venous Doppler exam. Real time thibodeaux-scale, Doppler spectral reji lysis and color-flow Doppler imaging performed. The veins targeted for evaluation include the common femoral, greater saphenous, profundus, femoral, popliteal, peroneal, anterior tibial and posterior t ibial. The evaluated veins demonstrated normal spontaneous flow and compression without evidence o f thrombosis. IMPRESSION: No venous thrombosis identified within the areas evaluated.
== END 2019-08-07 12:26 | disposition home or self-care (01) ==
LOC: RAD 12:25
PROVIDERS: ATTEND Internal Medicine
DX: M79.605 Pain in left leg (principal); M79.604 Pain in right leg; R20.8 Other disturbances of skin sensation